=== PATIENT | male | born 1980 | race Caucasian/White ===

== ENCOUNTER 2018-07-14 10:38 | Day surgery (SDC) | payer OTHER ==
[~2018-07-14] VITALS: Ht 177.8 cm; Wt 59.9 kg
[~2018-07-14 10:38] MED LIST: AMIT50TA PO; CALC500T68 PO; CELE1CAP4 PO; COLA100C5 PO; CYMB1CAP4 PO; D32000CA PO; LIDOCAINE 1% MDV 20ML VIAL SQ PRN; LR 1,000 ML IV SCH; ROBA500T PO; TRAM50TA2 PO
[2018-07-14] MEDS ORDERED: PROPOFOL 200 MG/20 ML VIAL As Ordered ONE ×3 (14:09→14:51)
[2018-07-14] MEDS ORDERED: fentaNYL 100 MCG/2 ML INJECTION (J3010) As Ordered ONE (14:09)
[2018-07-14] MEDS ORDERED: MIDAZOLAM INJ 2 MG/2 ML VIAL (J2250) As Ordered ONE (14:09)
[2018-07-14] MEDS ORDERED: CHLOROPROCAINE 2 % INJ PRES.FREE 20 ML VIAL (J2400) As Ordered ONE (14:10)
[2018-07-14] MEDS ORDERED: PHENYLephrine HCL 500 MCG/5 ML (100MCG/ML) SYRINGE (J2370) As Ordered ONE (14:10)
[2018-07-14] MEDS ORDERED: BUPIVACAINE LIPOSOME/PF 1.3% 20ML VIAL (13.3MG/ML)(EXPAREL)(C9290 PER1MG) As Ordered ONE (14:24)
[2018-07-14] MEDS ORDERED: BUPIVACAINE HCL 0.25% 30 ML VIAL As Ordered ONE (14:24)
[2018-07-14] MEDS ORDERED: KETOROLAC 60 MG/2 ML VIAL (J1885) As Ordered ONE (14:30)
[2018-07-14] MEDS ORDERED: ONDANSETRON 4MG/2ML VIAL (J2405) As Ordered ONE (14:30)
[2018-07-14] MEDS ORDERED: NORCO, ANEXSIA 5/325MG TABLET (HYDROcodone/ACETAMINOPHEN) PO PRN ×2 (15:45→16:30)
[2018-07-14] MEDS ORDERED: LR 1,000 ML IV SCH (15:45)
[2018-07-14] MEDS ORDERED: ONDANSETRON 4MG/2ML VIAL (J2405) IV PRN (15:45)
[2018-07-14] MEDS ORDERED: fentaNYL 100 MCG/2 ML INJECTION (J3010) IV PRN (15:45)
[2018-07-14 17:11] VITALS: BP 125/84
--- NOTE | 2018-07-18 11:24 | RO ---
DATE OF PROCEDURE: 07/14/2018 PREOPERATIVE DIAGNOSIS: Hemorrhoids, grade 2-3. POSTOPERATIVE DIAGNOSIS: Hemorrhoids, grade 2-3. PROCEDURE PERFORMED: Hemorrhoidectomy. SURGEON: Dr. Hutchinson JUNIOR SOFTWARE DEVELOPER: ANESTHESIA: Spinal. INDICATIONS FOR THE PROCEDURE: Patient is a 37-year-old man who has noted problems with intermittent flare-ups of hemorrhoids that by description are grade 2-3. He is now for a hemorrhoidectomy. OPERATIVE PROCEDURE: The patient had a spinal anesthetic placed. He was rolled into a prone position on the operating table and positioned into a prone jackknife position. The perineum was prepped and draped with the buttocks spread with tape. Examination revealed no significant external hemorrhoids. A Vargas anal speculum was used to perform a thorough exam of the distal rectum and anus. The patient appeared to have a healing tear or fissure in a right mid to anterior position. There were hemorrhoidal bundles identified in a posterior position smaller area in the anterior position and an area also in the left lateral position. The right posterior hemorrhoidal cluster was addressed first. A crown suture of #3-0 Vicryl was placed and the tissues were then excised using the needle tip cautery to elevate the hemorrhoidal tissues off of the underlying internal sphincter muscle beginning in the anoderm and extending interiorly. The wound was then closed using the #3-0 Vicryl of the crown suture as a running locking suture out to the dentate line and the more distal portion was closed with interrupted sutures of #3-0 chromic. The anterior hemorrhoidal bundle was excised similarly as was the left lateral hemorrhoidal bundle. Final inspection revealed no bleeding. There was possibly at the anal verge just to the left of the midline posteriorly but I did not wish to risk a stricture by excising additional tissue. 20 mL of Exparel was mixed with 20 mL of 0.25% Marcaine and this was infiltrated widely around the perianal area. Final inspection showed no bleeding. The anus was covered with Adaptic and a pressure dressing of fluffed gauze. The patient tolerated the procedure well. He was returned to a supine position and moved to the recovery room in stable condition.
== END 2018-07-14 17:11 | disposition home or self-care (01) ==
LOC: M SDC 10:38
PROVIDERS: ATTEND Surgery
DX: K64.9 Unspecified hemorrhoids (principal); K21.9 Gastro-esophageal reflux disease without esophagitis; F41.9 Anxiety disorder, unspecified; Z79.899 Other long term (current) drug therapy
CPT/HCPCS: 46946; 88304; C9290; J1885; J2250; J2370; J2400; J2405; J3010

== ENCOUNTER 2020-04-21 23:25 | Emergency (ER) | payer OTHER ==
[~2020-04-21] VITALS: Ht 177.8 cm; Wt 60.4 kg
[~2020-04-21 23:25] MED LIST changes: -LIDOCAINE 1% MDV 20ML VIAL SQ PRN; -LR 1,000 ML IV SCH
--- NOTE | 2020-04-22 01:08 | REPVR ---
PROCEDURE INFORMATION: Exam: XR Left Knee Exam date and time: 04/22/2020 11:33 PM Age: 39 years old Clinical indication: Pain; Knee; Left; Additional info: Injury TECHNIQUE: Imaging protocol: XR Left knee. Views: 4 or more views. COMPARISON: No relevant prior studies available. FINDINGS: Bones/joints: No radiographic evidence of acute fracture or dislocation. Alignment anatomic. Joint spaces preserved. No significant effusion. Soft tissues: Grossly unremarkable. IMPRESSION: No acute radiographic findings. Electronically signed by: Grant Finney On 04/22/2020 01:08:08 AM
[2020-04-22 02:12] VITALS: BP 115/72
== END 2020-04-22 02:14 | disposition home or self-care (01) ==
LOC: M ED 23:25
DX: S80.12XA Contusion of left lower leg, initial encounter (principal); W19.XXXA Unspecified fall, initial encounter; Y92.018 Other place in single-family (private) house as the place of occurrence of the external cause; Z79.899 Other long term (current) drug therapy

== ENCOUNTER → 2020-11-10 | Outpatient (CLI) | payer OTHER ==
[~2020-11-10] MED LIST changes: +BARIUM SULFATE 700 MG TABLET (E-Z-DISK) As Ordered ONE; +E-Z-PAQUE 96% w/w SUSP 176GM BTL As Ordered ONE; +VARIBAR NECTAR 40% w/v 240ML SUSP BTL As Ordered ONE; +VARIBAR PUDDING 40% w/v 230ML TUBE As Ordered ONE
== END ==
LOC: M RAD 13:37
PROVIDERS: ATTEND Otolaryngology
DX: R13.12 Dysphagia, oropharyngeal phase (principal)

== ENCOUNTER 2021-04-08 14:55 | Outpatient (RCR) | payer OTHER ==
[~2021-04-08 14:55] MED LIST changes: -BARIUM SULFATE 700 MG TABLET (E-Z-DISK) As Ordered ONE; -E-Z-PAQUE 96% w/w SUSP 176GM BTL As Ordered ONE; -VARIBAR NECTAR 40% w/v 240ML SUSP BTL As Ordered ONE; -VARIBAR PUDDING 40% w/v 230ML TUBE As Ordered ONE
== END 2021-04-20 ==
LOC: M ST 14:55
PROVIDERS: ATTEND Family Medicine
DX: R47.89 Other speech disturbances (principal)

== ENCOUNTER 2021-05-20 16:00 | Outpatient (RCR) | payer OTHER | END 2021-06-18 | LOC: M ST 16:00 | PROVIDERS: ATTEND Family Medicine | DX: R49.8 Other voice and resonance disorders (principal) ==

== ENCOUNTER 2024-11-07 11:47 | Emergency (ER) | payer OTHER ==
[~2024-11-07] VITALS: Ht 177.8 cm; Wt 57.2 kg
[2024-11-07] MEDS ORDERED: ZOLO100T PO (12:11)
[2024-11-07] MEDS ORDERED: WELLTAB38 PO (12:11)
[2024-11-07 13:02] LABS: KETONE, URINE AUTO RFX NEGATIVE (NEGATIVE); LEUKOCYTE ESTERASE UR AUTO RFX NEGATIVE (NEGATIVE); MUCUS, URINE RFX SMALL (NEGATIVE); NITRITE, URINE AUTO RFX NEGATIVE (NEGATIVE); RBC, URINE AUTO RFX TNTC /HPF (0-3); SQUAM EPITHELIAL CELL UR AURFX 0 /HPF (0-6); WBC, URINE AUTO RFX 1 /HPF (0-3)
[2024-11-07 14:00] LABS: BASO # 0.1 10^3/uL (0.0-0.2); BASO % 1.4 % (0.0-1.0); EOS # 0.4 10^3/uL (0.0-0.5); EOS % 7.4 % (0.0-3.0); LYMPH # 1.6 10^3/uL (1.5-5.0); LYMPH % 32.5 % (24.0-44.0); MONO # 0.4 10^3/uL (0.0-0.8); MONO % 9.1 % (2.0-8.0); NEUTROPHILS # 2.4 10^3/uL (1.5-8.5); NEUTROPHILS % 49.4 % (36.0-66.0); PLATELET COUNT, AUTOMATED 293 10^3/uL (150-450)
[2024-11-07 14:24] LABS: ALT/SGPT 16 U/L (7.0-40); AST/SGOT 21 U/L (<34); CALCIUM LEVEL 9.8 MG/DL (8.5-10.1); CARBON DIOXIDE LEVEL 31 MMOL/L (20-31); CHLORIDE LEVEL 103 MMOL/L (98-107); CREATININE FOR GFR 1.01 MG/DL (0.70-1.30); GLOMERULAR FILTRATION RATE > 90.0 (>60); POTASSIUM SERUM 3.9 MMOL/L (3.5-5.1); SODIUM LEVEL 143 MMOL/L (136-145)
[2024-11-07] MEDS ORDERED: TAMS-18 PO (14:47)
[2024-11-07 14:52] VITALS: BP 110/65; TEMP 98; O2SAT 98
== END 2024-11-07 15:00 | disposition home or self-care (01) ==
LOC: M ED 12:51
DX: N20.1 Calculus of ureter (principal); F41.9 Anxiety disorder, unspecified; M81.0 Age-related osteoporosis without current pathological fracture

== ENCOUNTER 2024-12-05 09:21 | Emergency (ER) | payer OTHER ==
[~2024-12-05 09:21] MED LIST changes: +TAMS-18 PO; +WELLTAB38 PO; +ZOLO100T PO
[2024-12-05 09:46] LABS: BASO # 0.1 10^3/uL (0.0-0.2); BASO % 1.5 % (0.0-1.0); EOS # 0.3 10^3/uL (0.0-0.5); EOS % 3.4 % (0.0-3.0); LYMPH # 1.9 10^3/uL (1.5-5.0); LYMPH % 22.6 % (24.0-44.0); MONO # 0.6 10^3/uL (0.0-0.8); MONO % 7.3 % (2.0-8.0); NEUTROPHILS # 5.5 10^3/uL (1.5-8.5); NEUTROPHILS % 65.0 % (36.0-66.0); PLATELET COUNT, AUTOMATED 327 10^3/uL (150-450)
[2024-12-05 09:54] LABS: KETONE, URINE AUTO RFX NEGATIVE (NEGATIVE); LEUKOCYTE ESTERASE UR AUTO RFX NEGATIVE (NEGATIVE); NITRITE, URINE AUTO RFX NEGATIVE (NEGATIVE); RBC, URINE AUTO RFX TNTC /HPF (0-3); SQUAM EPITHELIAL CELL UR AURFX 0 /HPF (0-6); WBC, URINE AUTO RFX 1 /HPF (0-3)
[2024-12-05] MEDS: NS (Normal Saline) 0.9% 1,000 ML IV ONE (09:59)
[2024-12-05] MEDS: ONDANSETRON 4MG 2ML VIAL IV ONE (09:59)
[2024-12-05] MEDS: KETOROLAC 30 MG/ML 1 ML VIAL IV ONE (09:59)
[2024-12-05 10:16] LABS: ALT/SGPT 13 U/L (7.0-40); AST/SGOT 29 U/L (<34); CALCIUM LEVEL 9.5 MG/DL (8.5-10.1); CARBON DIOXIDE LEVEL 24 MMOL/L (20-31); CHLORIDE LEVEL 105 MMOL/L (98-107); CREATININE FOR GFR 1.11 MG/DL (0.70-1.30); GLOMERULAR FILTRATION RATE 85.0 (>60); POTASSIUM SERUM 4.3 MMOL/L (3.5-5.1); SODIUM LEVEL 140 MMOL/L (136-145)
[2024-12-05 11:43] VITALS: BP 98/55; TEMP 97.2; O2SAT 100
[2024-12-05] MEDS ORDERED: KETO-204 PO (11:44)
[2024-12-05] MEDS ORDERED: ONDA-282 PO (12:47)
== END 2024-12-05 11:59 | disposition home or self-care (01) ==
LOC: M ED 10:28
DX: N20.1 Calculus of ureter (principal); R91.1 Solitary pulmonary nodule; Z79.2 Long term (current) use of antibiotics; Z79.899 Other long term (current) drug therapy
CPT/HCPCS: 74176; 80053; 81001; 82248; 83690; 85025; 96374; 99284; J1885; J2405

== ENCOUNTER → 2024-12-20 | Outpatient (REF) | payer OTHER ==
[~2024-12-20] MED LIST changes: +KETO-204 PO; +ONDA-282 PO
== END ==
LOC: M SMT 12:56
PROVIDERS: ATTEND Nurse Practitioner Family
DX: N20.0 Calculus of kidney (principal)